=== PATIENT | female | born 1970 | race American Indian/Alaskan Native ===

== ENCOUNTER 2017-09-26 11:49 | Emergency (ER) | payer MEDICAID ==
[2017-09-26] MEDS ORDERED: ZOFRAN IV ONE (12:24)
[2017-09-26] MEDS ORDERED: NACL 0.9% 1000 ML 1,000 ML IV ONE (12:24)
[2017-09-26] MEDS ORDERED: TORADOL IV ONE (12:24)
--- NOTE | 2017-09-26 12:25 | Emergency Department Report ---
Blank Doc - Documentation Documentation: Patient is a 47-year-old Female who presented with 24 hours of left flank pain. Patient had several episodes of nausea and vomiting as well.. Patient does have pain with palpation. Patient denies any fever or dysuria at this time. CT abdomen pelvis done to rule out obstructive uropathy or swelling to the colon. Patient also had labs and urinalysis ordered as well and patient will be reassessed.
[2017-09-26 13:38] LABS: Basophils % (Auto) 0.3 % (0.0-1.8); Eosinophils # (Auto) 0.2 K/mm3 (0.0-0.4); Eosinophils % (Auto) 3.9 % (0.0-4.3); Hematocrit 36.2 % (30.3-42.9); Hemoglobin 12.3 gm/dl (10.1-14.3); Lymphocytes # (Auto) 2.2 K/mm3 (1.2-5.4); Lymphocytes % (Auto) 35.3 % (13.4-35.0); Mean Corpuscular HGB Conc 34 % (30-34); Mean Corpuscular Hemoglobin 29 pg (28-32); Mean Corpuscular Volume 84 fl (79-97); Monocytes # (Auto) 0.5 K/mm3 (0.0-0.8); Monocytes % (Auto) 7.9 % (0.0-7.3); Platelet Count 255 K/mm3 (140-440); Red Cell Distribution Width 15.8 % (13.2-15.2)
[2017-09-26 13:54] LABS: Alanine Aminotransferase 11 units/L (7-56); Albumin 4.1 g/dL (3.9-5); BUN/Creatinine Ratio 13; Blood Urea Nitrogen 8 mg/dL (7-17); Calcium 9.1 mg/dL (8.4-10.2); Hemolysis Index 7
[2017-09-26 18:02] VITALS: BP 127/65
--- NOTE | 2017-09-26 18:04 | Cat Scan Report ---
FINAL REPORT PROCEDURE: CT ABDOMEN PELVIS WO CON TECHNIQUE: Computerized axial tomography of the abdomen and pelvis was performed without intravenous contrast. This study is performed without intravascular contrast material and its sensitivity for abdominal and pelvic pathology, including neoplasms, inflammation, abscess, free fluid, thrombosis, arterial dissection and infarction, is reduced compared with a contrast enhanced study. HISTORY: Left flank pain. COMPARISON: No prior studies are available for comparison. FINDINGS: Visualized lower thorax: No significant abnormality. Liver: Normal size and attenuation. Spleen: Normal size and attenuation. Gallbladder and biliary system: Normal. Pancreas: Normal. Adrenals: Normal. Kidneys: Normal. GI tract: Normal. Normal caliber appendix. Lymph nodes and mesentery: Subcentimeter pre cardiac, retroperitoneal, and mesenteric lymph nodes Vasculature: Mild atherosclerosis. Bladder: Normal. Reproductive organs: Mild enlargement of the uterus. Peritoneum: No free fluid. Musculoskeletal structures: L4-5 slightly left paracentral disc bulge. L5-S1 left paracentral disc herniation, may contact the left S1 nerve root. L5-S1 disc space narrowing and endplate change. Other: Fat filled right inguinal hernia. IMPRESSION: No CT evidence of renal/ureteral stone or obstruction. L4-5 disc bulge. L5-S1 left paracentral disc herniation, may contact the left S1 nerve root. Consider clinical correlation and further evaluation and followup including MRI of the lumbar spine if there is continued clinical concern (and if patient has no contraindication to MRI). Mild enlargement of the uterus Fat filled right inguinal hernia.
[2017-09-26 18:59] LABS: Bacteria,Urine 1+ /HPF (Negative); Bilirubin,Urine NEG (Negative); Blood,Urine NEG (Negative); Color,Urine Yellow (Yellow); Mucus,Urine 1+ /HPF; Protein,Urine <15 mg/dL mg/dL (Negative); Urobilinogen,Urine < 2.0 mg/dL (<2.0)
[2017-09-26 19:04] LABS: HCG Qualitative,Urine Negative (Negative)
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
[2017-09-26] MEDS ORDERED: ZOFRAN ODT PO ONE (19:53)
[2017-09-26] MEDS ORDERED: PERCOCET 5/325 PO ONE (19:53)
== END 2017-09-26 20:06 | disposition home or self-care (01) ==
LOC: ED 11:49
DX: N39.0 Urinary tract infection, site not specified (principal); J45.909 Unspecified asthma, uncomplicated; F17.200 Nicotine dependence, unspecified, uncomplicated; Z88.8 Allergy status to other drugs, medicaments and biological substances
CPT/HCPCS: 36415; 74176; 80053; 81001; 81025; 85025; 96361; 96374; 96375; 99284; J1885; J2405; J7030; Q0162

== ENCOUNTER 2018-09-11 12:57 | Emergency (ER) | payer OTHER ==
[2018-09-11] MEDS ORDERED: DELTASONE PO ONE (13:13)
[2018-09-11] MEDS ORDERED: DUONEB *Not for PRN Use IH ONE ×2 (13:13→14:30)
--- NOTE | 2018-09-11 13:14 | Event Note ---
ED Screening Note Date of service: 09/11/18 Time: 13:11 ED Screening Note: 48 y/o female comes in for asthma flare up. Has been coughing and wheezing. For 1 week. This initial assessment/diagnostic orders/clinical plan/treatment(s) is/are subject to change based on patients health status, clinical progression and re- assessment by fellow clinical providers in the ED. Further treatment and workup at subsequent clinical providers discretion. Patient/guardian urged not to elope from the ED as their condition may be serious if not clinically assessed and managed. Initial orders include:
--- NOTE | 2018-09-11 13:52 | XRay Report ---
CHEST 2 VIEWS INDICATION / CLINICAL INFORMATION: sob. COMPARISON: None available. FINDINGS: SUPPORT DEVICES: None. HEART / MEDIASTINUM: No significant abnormality. LUNGS / PLEURA: No significant pulmonary or pleural abnormality. No pneumothorax. ADDITIONAL FINDINGS: No significant additional findings. IMPRESSION: 1. No acute pulmonary disease. Signer Name: Noni Ring MD Signed: 09/11/2018 1:47 PM Workstation Name: [id number]
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
[2018-09-11 15:56] VITALS: BP 117/77
== END 2018-09-11 14:58 | disposition home or self-care (01) ==
LOC: ED 12:57
DX: J45.21 Mild intermittent asthma with (acute) exacerbation (principal); F17.210 Nicotine dependence, cigarettes, uncomplicated; I10 Essential (primary) hypertension; Z79.899 Other long term (current) drug therapy; Z88.8 Allergy status to other drugs, medicaments and biological substances
CPT/HCPCS: 71046; 94644; 99283; J7512; 94640

== ENCOUNTER 2018-10-30 21:11 | Emergency (ER) | payer SELFPAY ==
--- NOTE | 2018-10-30 22:20 | Event Note ---
ED Screening Note Date of service: 10/30/18 Time: 22:17 ED Screening Note: 48 yo f presents with swelling and pain to right side of face x this am This initial assessment/diagnostic orders/clinical plan/treatment(s) is/are subject to change based on patients health status, clinical progression and re- assessment by fellow clinical providers in the ED. Further treatment and workup at subsequent clinical providers discretion. Patient/guardian urged not to elope from the ED as their condition may be serious if not clinically assessed and managed. Initial orders include: ct facial
--- NOTE | 2018-10-30 23:32 | Cat Scan Report ---
CT face INDICATION: Right facial swelling Contrast: None COMPARISON: None All CT scans at this location are performed using CT dose reduction for ALARA by means of automated e xposure control. No acute bony abnormalities are seen. Mild nasal septal deviation to the right is seen. The paranasal sinuses show moderate thickening in the left sphenoid, mild thickening in the right max illary, and minimal thickening in the ethmoid air cells bilaterally. Frontal sinuses are very poorly developed. No sinus air-fluid levels are seen. No significant mastoid abnormalities are noted. Orbits show no significant abnormalities. Soft tissue edema with subcutaneous stranding is moderately prominent in the right face from the lowe r preorbital tissues along the anterior maxillary area and lateral nose extending inferiorly to the a nterolateral right mandibular region. I do not see a fluid collection to suggest an abscess. No under lying bony erosion is seen. No defined mass is noted. I do not definitely see a hematoma. No soft tis elder gas is seen. IMPRESSION: Soft tissue edema as described in the right face without obvious abscess or hematoma and without significant bony or sinus acute abnormality. Source is unclear though could include celluliti s or sequelae of trauma though I do not have the latter history. Signer Name: Adal Hendrickson MD Signed: 10/30/2018 11:27 PM Workstation Name: [id number]
[2018-10-31] MEDS ORDERED: BENADRYL IV ONE (00:25)
[2018-10-31] MEDS ORDERED: REGLAN IV ONE (00:25)
[2018-10-31] MEDS ORDERED: TORADOL IV ONE (00:25)
[2018-10-31] MEDS ORDERED: REGLAN ONE (00:30)
[2018-10-31] MEDS ORDERED: BENADRYL ONE (00:30)
[2018-10-31] MEDS ORDERED: TORADOL ONE (00:30)
[2018-10-31] MEDS ORDERED: NORCO 5/325 ONE (00:50)
[2018-10-31] MEDS ORDERED: NORCO 5/325 PO ONE (00:50)
[2018-10-31] MEDS ORDERED: CLEOCIN 900 MG/50 mL 900 MG/50 ML BAG IV ONE (02:02)
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
[2018-10-31] MEDS ORDERED: ZOFRAN IV ONE (03:28)
[2018-10-31] MEDS ORDERED: MORPHINE IV ONE (03:28)
[2018-10-31 03:51] VITALS: BP 130/81
== END 2018-10-31 03:50 | disposition home or self-care (01) ==
LOC: ED 21:11
DX: L03.211 Cellulitis of face (principal); I10 Essential (primary) hypertension; J45.909 Unspecified asthma, uncomplicated; F17.200 Nicotine dependence, unspecified, uncomplicated; Z98.890 Other specified postprocedural states; Z79.899 Other long term (current) drug therapy; Z88.8 Allergy status to other drugs, medicaments and biological substances
CPT/HCPCS: 70486; 96365; 96375; 99283; J2270; J2405; J1200; J1885; J2765

== ENCOUNTER 2018-12-19 16:03 | Emergency (ER) | payer SELFPAY ==
--- NOTE | 2018-12-19 16:11 | Event Note ---
ED Screening Note ED Screening Note: abdominal pain lower back pain two days +nausea no vomiting, pressure when urination LNMP: 12/02/18 PMHx asthma, hernia, chronic back pain allergy: methylergonovine This initial assessment/diagnostic orders/clinical plan/treatment(s) is/are subject to change based on patients health status, clinical progression and re- assessment by fellow clinical providers in the ED. Further treatment and workup at subsequent clinical providers discretion. Patient/guardian urged not to elope from the ED as their condition may be serious if not clinically assessed and managed. Initial orders include: UA, CBC, CMP
[2018-12-19 16:15] VITALS: BP 174/84
[2018-12-19] MEDS ORDERED: MORPHINE 4 MG/1 ML INJ IV ONE (16:26)
[2018-12-19] MEDS ORDERED: ONDANSETRON 4 MG/2 ML INJ IV ONE (16:26)
[2018-12-19] MEDS ORDERED: SODIUM CHLORIDE 0.9% 1000 ML 1,000 ML IV ONE (16:26)
[2018-12-19 16:43] LABS: Bacteria,Urine 2+ /HPF (Negative); Bilirubin,Urine NEG (Negative); Blood,Urine NEG (Negative); Color,Urine Yellow (Yellow); Mucus,Urine FEW /HPF; Protein,Urine <15 mg/dL mg/dL (Negative); Urobilinogen,Urine < 2.0 mg/dL (<2.0); WBC,Urine < 1.0 /HPF (0.0-6.0)
[2018-12-19 16:55] LABS: Basophils # (Auto) 0.1 K/mm3 (0.0-0.1); Basophils % (Auto) 0.9 % (0.0-1.8); Eosinophils # (Auto) 0.4 K/mm3 (0.0-0.4); Eosinophils % (Auto) 5.4 % (0.0-4.3); Hematocrit 39.4 % (30.3-42.9); Lymphocytes # (Auto) 2.1 K/mm3 (1.2-5.4); Lymphocytes % (Auto) 32.3 % (13.4-35.0); Mean Corpuscular HGB Conc 33 % (30-34); Mean Corpuscular Volume 88 fl (79-97); Monocytes # (Auto) 0.4 K/mm3 (0.0-0.8); Monocytes % (Auto) 6.4 % (0.0-7.3); Platelet Count 267 K/mm3 (140-440); Red Cell Distribution Width 16.4 % (13.2-15.2)
[2018-12-19 17:12] LABS: Albumin 4.3 g/dL (3.9-5); BUN/Creatinine Ratio 17; Blood Urea Nitrogen 12 mg/dL (7-17); Calcium 9.2 mg/dL (8.4-10.2); Hemolysis Index 96
[2018-12-19 17:19] LABS: Alanine Aminotransferase 12 units/L (7-56)
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
--- NOTE | 2018-12-19 18:15 | Cat Scan Report ---
CT of the abdomen and pelvis with intravenous contrast INDICATION / CLINICAL INFORMATION: Right-sided abdominal pain for 2 days. TECHNIQUE: The patient received 100 cc Omnipaque [address] scans at this location are performed using CT dose reduction for ALARA by means of automated exposure control. COMPARISON: 07/09/2018. FINDINGS: ABDOMEN: The liver, spleen, gallbladder, bile ducts, pancreas, adrenal glands, kidneys and bowel demo nstrate no significant abnormality. No adenopathy is seen. The lung bases are clear. PELVIS: There is a 4 cm simple appearing cyst in the right adnexa without free fluid. The uterus and left adnexa are normal. The distal ureters and urinary bladder are normal. A normal appendix is present and there is no evide nce of diverticulitis. There is no evidence of a hernia. There is moderate degenerative disc disease at L5-S1 which is similar to the prior study. IMPRESSION: 4 cm simple appearing cyst in the right adnexa is probably physiologic. Signer Name: Calixto Hennessy MD Signed: 12/19/2018 6:10 PM Workstation Name: [id number]
== END 2018-12-19 18:41 | disposition home or self-care (01) ==
LOC: ED 16:03
DX: N94.9 Unspecified condition associated with female genital organs and menstrual cycle (principal); I10 Essential (primary) hypertension; J45.909 Unspecified asthma, uncomplicated; F17.200 Nicotine dependence, unspecified, uncomplicated; F12.10 Cannabis abuse, uncomplicated; Z88.8 Allergy status to other drugs, medicaments and biological substances
CPT/HCPCS: 36415; 74177; 80053; 81001; 83690; 84703; 85025; 96361; 96374; 96375; 99284; J2270; J2405; J7030; Q9967

== ENCOUNTER 2019-01-30 14:05 | Emergency (ER) | payer SELFPAY ==
--- NOTE | 2019-01-30 14:25 | Emergency Department Report ---
Blank Doc - Documentation Documentation: 49-year-old female that presents with left sided chest pain and SOB. HX of as thma. Stated symptoms are different from asthma exacerbations. This initial assessment/diagnostic orders/clinical plan/treatment(s) is/are subject to change based on patient's health status, clinical progression and re- assessment by fellow clinical providers in the ED. Further treatment and workup at subsequent clinical providers discretion. Patient/guardians urged not to elope from the ED as their condition may be serious if not clinically assessed and managed. Initial orders include: 1- Patient sent to [facility] for further evaluation and treatment 2- labs 3- EKG 4- CXR
[2019-01-30 14:47] LABS: Basophils # (Auto) 0.1 K/mm3 (0.0-0.1); Basophils % (Auto) 0.8 % (0.0-1.8); Eosinophils # (Auto) 0.2 K/mm3 (0.0-0.4); Eosinophils % (Auto) 3.9 % (0.0-4.3); Hematocrit 39.1 % (30.3-42.9); Hemoglobin 13.2 gm/dl (10.1-14.3); Lymphocytes # (Auto) 2.4 K/mm3 (1.2-5.4); Lymphocytes % (Auto) 39.3 % (13.4-35.0); Mean Corpuscular HGB Conc 34 % (30-34); Mean Corpuscular Volume 86 fl (79-97); Monocytes # (Auto) 0.5 K/mm3 (0.0-0.8); Monocytes % (Auto) 9.1 % (0.0-7.3); Platelet Count 268 K/mm3 (140-440); Red Blood Count 4.58 M/mm3 (3.65-5.03); Red Cell Distribution Width 15.8 % (13.2-15.2)
[2019-01-30 15:12] LABS: Alanine Aminotransferase 13 units/L (7-56); Albumin 4.4 g/dL (3.9-5); BUN/Creatinine Ratio 15; Blood Urea Nitrogen 9 mg/dL (7-17); Calcium 9.3 mg/dL (8.4-10.2); Hemolysis Index 3
--- NOTE | 2019-01-30 15:14 | XRay Report ---
CHEST 2 VIEWS INDICATION: Chest Pain. COMPARISON: 09/11/2018 FINDINGS: Support devices: None. Heart: Within normal limits. Lungs/pleura: No acute air space or interstitial disease. No pneumothorax. Additional findings: None. IMPRESSION: 1. No acute findings. Signer Name: Titus Allen MD Signed: 01/30/2019 3:10 PM Workstation Name: [id number]
[2019-01-30] MEDS ORDERED: predniSONE 20 MG TAB PO ONE (16:12)
[2019-01-30] MEDS ORDERED: ACETAMINOPEN W/CODEINE 120-12MG ORAL LIQD 5 ML PO ONE (16:12)
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
[2019-01-30 17:23] VITALS: BP 181/87
== END 2019-01-30 17:22 | disposition home or self-care (01) ==
LOC: ED 14:05
DX: K21.9 Gastro-esophageal reflux disease without esophagitis (principal); I10 Essential (primary) hypertension; J45.909 Unspecified asthma, uncomplicated; F17.200 Nicotine dependence, unspecified, uncomplicated; Z79.899 Other long term (current) drug therapy; Z88.8 Allergy status to other drugs, medicaments and biological substances
CPT/HCPCS: 36415; 71046; 80053; 84484; 85025; 93005; 93010; 99284; J7512

== ENCOUNTER 2019-02-18 23:24 | Emergency (ER) | payer OTHER ==
[2019-02-19 00:49] LABS: Basophils % (Auto) 0.5 % (0.0-1.8); Eosinophils # (Auto) 0.3 K/mm3 (0.0-0.4); Eosinophils % (Auto) 4.9 % (0.0-4.3); Hematocrit 36.2 % (30.3-42.9); Hemoglobin 12.2 gm/dl (10.1-14.3); Lymphocytes # (Auto) 1.8 K/mm3 (1.2-5.4); Lymphocytes % (Auto) 26.9 % (13.4-35.0); Mean Corpuscular HGB Conc 34 % (30-34); Mean Corpuscular Volume 86 fl (79-97); Monocytes # (Auto) 0.4 K/mm3 (0.0-0.8); Monocytes % (Auto) 5.9 % (0.0-7.3); Platelet Count 230 K/mm3 (140-440); Red Blood Count 4.21 M/mm3 (3.65-5.03); Red Cell Distribution Width 15.4 % (13.2-15.2)
--- NOTE | 2019-02-19 00:55 | XRay Report ---
CHEST 1 VIEW INDICATION: Chest Pain COMPARISON: 01/30/2019 FINDINGS: Support devices: None Heart: Normal and unchanged Lungs/Pleura: No acute pulmonary or pleural findings. IMPRESSION: 1. No acute disease and no interval change. Signer Name: Albert Brown MD Signed: 02/19/2019 12:51 AM Workstation Name: [id number]
[2019-02-19 01:11] LABS: BUN/Creatinine Ratio 9; Blood Urea Nitrogen 7 mg/dL (7-17); Hemolysis Index 18
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
--- NOTE | 2019-02-19 16:19 | Cat Scan Report ---
CTA CHEST WITH IV CONTRAST INDICATION: Chest pain CONTRAST: 100 cc Omnipaque 350 IV COMPARISON: Portable chest x-ray today Three-plane MIP reconstructions were produced. All CT scans at this location are performed using CT d ose reduction for ALARA by means of automated exposure control. NOTE: Resolution is decreased and artifact is introduced by the patient's size. FINDINGS: No significant axillary or chest wall abnormalities are seen. Visualized portions of the up per abdomen show mild fatty infiltration of the liver. No mediastinal or hilar masses are seen. A few small nodes are noted in the mediastinum but are not pathologically enlarged. No pleural effusions a re seen. No pneumothorax or pneumomediastinum are noted. No obvious endobronchial lesions are seen. M ild bilateral areas of scarring and/or atelectasis are seen. No areas of consolidation are noted. No pulmonary nodules or masses are seen. Aorta shows no aneurysmal dilatation or evidence of dissection. Acceptable opacification of the pulmonary arterial system was achieved. I do not see convincing evide nce of pulmonary thromboembolism. IMPRESSION: No acute abnormalities are seen Signer Name: Adal Hendrickson MD Signed: 02/19/2019 4:15 PM Workstation Name: [id number]
[2019-02-19 16:36] VITALS: BP 116/71
== END 2019-02-19 16:53 | disposition home or self-care (01) ==
LOC: ED 23:24
DX: R07.89 Other chest pain (principal); I10 Essential (primary) hypertension; J45.909 Unspecified asthma, uncomplicated; F17.200 Nicotine dependence, unspecified, uncomplicated; F10.10 Alcohol abuse, uncomplicated; Z79.899 Other long term (current) drug therapy; Z88.8 Allergy status to other drugs, medicaments and biological substances
CPT/HCPCS: 36415; 71045; 71275; 80048; 84484; 85025; 85379; 93005; 93010; 99285; Q9967

== ENCOUNTER 2019-03-11 19:30 | Inpatient (IN) | payer OTHER ==
[2019-03-11] MEDS ORDERED: ASPIRIN 325 MG TAB PO ONE (20:02)
[2019-03-11] MEDS ORDERED: IPRATROPIUM/ALBUTEROL SULFATE 3 ML AMPUL.NEB IH ONE (20:52)
--- NOTE | 2019-03-11 21:01 | XRay Report ---
CHEST 1 VIEW INDICATION / CLINICAL INFORMATION: Chest Pain. COMPARISON: 02/19/2019 FINDINGS: SUPPORT DEVICES: None. HEART / MEDIASTINUM: No significant abnormality. LUNGS / PLEURA: No significant pulmonary or pleural abnormality. No pneumothorax. There is minimal ba silar atelectasis. ADDITIONAL FINDINGS: No significant additional findings. IMPRESSION: 1. No significant change Signer Name: Michael Post MD Signed: 03/11/2019 8:56 PM Workstation Name: [id number]
[2019-03-11 21:15] LABS: Basophils # (Auto) 0.1 K/mm3 (0.0-0.1); Basophils % (Auto) 0.7 % (0.0-1.8); Eosinophils # (Auto) 0.1 K/mm3 (0.0-0.4); Hematocrit 35.9 % (30.3-42.9); Hemoglobin 12.5 gm/dl (10.1-14.3); Lymphocytes # (Auto) 1.7 K/mm3 (1.2-5.4); Lymphocytes % (Auto) 15.9 % (13.4-35.0); Mean Corpuscular HGB Conc 35 % (30-34); Mean Corpuscular Volume 84 fl (79-97); Monocytes # (Auto) 0.7 K/mm3 (0.0-0.8); Monocytes % (Auto) 6.5 % (0.0-7.3); Platelet Count 272 K/mm3 (140-440); Red Blood Count 4.27 M/mm3 (3.65-5.03); Red Cell Distribution Width 15.6 % (13.2-15.2)
[2019-03-11 21:37] LABS: BUN/Creatinine Ratio 10; Blood Urea Nitrogen 7 mg/dL (7-17); Calcium 9.6 mg/dL (8.4-10.2); Hemolysis Index 4
[2019-03-11 22:14] LABS: Chol/HDL Ratio 4.17 %; HDL Cholesterol 46 mg/dL (40-59); LDL Cholesterol,Direct 130 mg/dL (50-130)
[2019-03-11] MEDS ORDERED: fentaNYL 100 MCG/2 ML INJ IV ONE ×2 (22:19→23:43)
[2019-03-11] MEDS ORDERED: ONDANSETRON 4 MG/2 ML INJ IV ONE (22:19)
[2019-03-11] MEDS ORDERED: NITROGLYCERIN 2% OINT 1 GM TP ONE (22:22)
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
[2019-03-12] MEDS ORDERED: SIMETHICONE 80 MG CHEW TAB PO ONE (00:25)
--- NOTE | 2019-03-12 01:02 | Cat Scan Report ---
CTA CHEST WITH IV CONTRAST INDICATION: chest pain, back pain, pleurisy. TECHNIQUE: Axial CT images were obtained through the chest after injection of IV contrast. 3 plane MIP reconstru ctions were produced. All CT scans at this location are performed using CT dose reduction for ALARA b y means of automated exposure control. COMPARISON: CT 02/19/2019 FINDINGS: Pulmonary Arteries: No pulmonary emboli. Thoracic Aorta: No acute abnormality. Heart: Stable. Lungs: No acute air space or interstitial disease. There are mild atelectatic changes in the dependen t bases. Pleura: No pleural effusion. No pneumothorax. Lymph Nodes: No significant adenopathy. Additional Findings: None. Upper Abdomen: No acute findings. Skeletal Structures: No significant osseous abnormality. IMPRESSION: 1. No CT evidence for pulmonary embolism. 2. No acute findings. Signer Name: Sukhjinder Strong MD Signed: 03/12/2019 12:58 AM Workstation Name: [id number]
[2019-03-12] MEDS ORDERED: HEPARIN 10,000 UNITS/10 ML VIAL IV ONE (01:05)
[2019-03-12] MEDS ORDERED: MORPHINE 4 MG/1 ML INJ IV ONE (02:05)
[2019-03-12 02:07] LABS: Hematocrit 38.5 % (30.3-42.9); Hemoglobin 12.9 gm/dl (10.1-14.3)
--- NOTE | 2019-03-12 02:48 | History and Physical Report ---
History of Present Illness History of present illness: 49-year-old woman with a history of asthma, chronic back pain comes emergency room complaints of chest pain that started yesterday. Pain is in the epigastric area which she describes as sharp pain, constant, intensity 5/10, radiating to the right arm, cannot identify exacerbating factors. Admits to nausea vomiting no shortness of breath, palpitation. Patient is being admitted for STEMI eview Of Systems: Constitutional: no weight loss, fever, chills Ears, eyes, nose, mouth and throat: no nasal congestion, no nasal discharge, no sinus pressure, blurry vision, diplopia Neck: No neck pain or rigidity. Cardiovascular: No palpitations Respiratory: No s cough Gastrointestinal: No hematochezia, abdominal pain Genitourinary : no dysuria, frequency , hematuria Musculoskeletal: no muscle ache , joint pain Integumentary: no rash, no pruritis Neurological: no parathesias, focal weakness Endocrine: no cold or heat intolerance, no polyuria or polydipsia Hematologic/Lymphatic: no easy bruising, no easy bleeding, no gland swelling Allergic/Immunologic: no urticaria, no angioedema. PAST MEDICAL HISTORY:asthma, chronic back pain PAST SURGICAL HISTORY: Tubal Ligation FAMILY HISTORY:hypertension, diabetes SOCIAL HISTORY: Quit tobacco in January, no drugs, social alcohol Medications and Allergies Allergies Allergy/AdvReac Type Severity Reaction Status Date / Time methylergonovine Allergy Shortness Verified 09/26/17 17:02 [From Methergine] of Breath ketorolac [From Toradol] AdvReac Headache Verified 03/11/19 20:03 Home Medications Medication Instructions Recorded Confirmed Last Taken Type Albuterol Sulfate [Proventil Hfa] 6.7 gm IH Q4H PRN #1 hfa.aer.ad 09/11/18 03/11/19 Unknown Rx Ondansetron [Zofran Odt] 4 mg PO Q8HR PRN #20 tab.rapdis 12/19/18 03/11/19 Unknown Rx Baclofen [Lioresal] 10 mg PO ONCE 03/11/19 03/11/19 Unknown History Gabapentin [Neurontin] 1 tab PO TID 03/11/19 03/11/19 Unknown History Pantoprazole [Protonix TAB] 20 mg QDAY 03/11/19 03/11/19 Unknown History Active Meds: Active Medications Heparin Sodium/Sodium Chloride (Heparin/ 0.45% Nacl-25,000 Unit/500 Ml) 25,000 unit in 500 mls @ 20 mls/hr IV TITRATE CHIDI; Protocol Exam - Physical Exam Narrative exam: General Apperance: The patient sitting in bed no acute distress HEENT: Normocephalic, atraumatic. Pupils equally round and reactive to light, extraocular movement intact, and no sclericterus or JVD or thyromegaly or nodule. Neck supple, no carotid bruit, mucous membranes moist, no exudate or erythema Heart: S1-S2, regular is rhythm Lungs: Clear to auscultation bilaterally, breathing comfortable Abdomen: Positive bowel sounds, soft, nontender, nondistended, no organomegaly Extremities: No edema cyanosis clubbing Skin: no rash, nodule, warm and dry Neuro:CN 2 -12 intact, motor/sensory intact, speech is fluent - Constitutional Vitals: Temp Pulse Resp BP Pulse Ox 99.6 F 94 H 12 135/90 100 03/11/19 22:25 03/12/19 02:30 03/12/19 02:30 03/12/19 02:30 03/12/19 02:30 Results - Labs CBC & Chem 7: 03/12/19 01:44 03/11/19 21:06 Labs: Abnormal lab results 03/11/19 03/11/19 Range/Units 21:06 21:06 MCHC 35 H (30-34) % RDW 15.6 H (13.2-15.2) % Seg Neutrophils % 75.9 H (40.0-70.0) % Seg Neutrophils # 8.0 H (1.8-7.7) K/mm3 Sodium 135 L (137-145) mmol/L Carbon Dioxide 20 L (22-30) mmol/L Glucose 113 H (65-100) mg/dL Troponin T 0.946 H* (0.00-0.029) ng/mL - Imaging and Cardiology EKG: image reviewed Chest x-ray: report reviewed CT scan - chest: report reviewed
[2019-03-12 02:50] LABS: INR 1.06 (0.87-1.13)
[2019-03-12 02:51] LABS: Partial Thromboplastin Time 34.6 Sec. (24.2-36.6)
[2019-03-12] MEDS: HEPARIN/ 0.45% NACL DRIP 25,000 UNIT/500 ML BAG IV SCH (03:01)
[2019-03-12] MEDS: MORPHINE 2 MG/1 ML INJ IV PRN ×4 (05:57→21:43)
[2019-03-12 06:55] LABS: Creatine Kinase MB 30.9 ng/mL (0.0-4.0)
--- NOTE | 2019-03-12 07:49 | Consultation ---
History of Present Illness Consult date: 03/12/19 Consult reason: abnormal cardiac enzymes History of present illness: Impression NSTEMI No prior history of CAD HTN Plan IV heparin, b-melva, nitrates Cardiac cath planned for Thursday Medications and Allergies Allergies Allergy/AdvReac Type Severity Reaction Status Date / Time methylergonovine Allergy Shortness Verified 09/26/17 17:02 [From Methergine] of Breath ketorolac [From Toradol] AdvReac Headache Verified 03/11/19 20:03 Home Medications Medication Instructions Recorded Confirmed Last Taken Type Albuterol Sulfate [Proventil Hfa] 6.7 gm IH Q4H PRN #1 hfa.aer.ad 09/11/18 03/11/19 Unknown Rx Ondansetron [Zofran Odt] 4 mg PO Q8HR PRN #20 tab.rapdis 12/19/18 03/11/19 Unknown Rx Baclofen [Lioresal] 10 mg PO ONCE 03/11/19 03/11/19 Unknown History Gabapentin [Neurontin] 1 tab PO TID 03/11/19 03/11/19 Unknown History Pantoprazole [Protonix TAB] 20 mg QDAY 03/11/19 03/11/19 Unknown History Active Meds: Active Medications Aspirin (Baby Aspirin) 81 mg PO QDAY [facility] Heparin Sodium/Sodium Chloride (Heparin/ 0.45% Nacl-25,000 Unit/500 Ml) 25,000 unit in 500 mls @ 20 mls/hr IV TITRATE CHIDI; Protocol Last Admin: 03/12/19 03:01 Dose: 1,000 units/hr, 20 mls/hr Documented by: Lisinopril (Zestril) 2.5 mg PO QDAY CHIDI Metoprolol Tartrate (Metoprolol) 12.5 mg PO BID [facility] Morphine Sulfate (Morphine) 2 mg IV Q4H PRN PRN Reason: Pain, Moderate (4-6) Last Admin: 03/12/19 05:57 Dose: 2 mg Documented by: Review of Systems All systems: negative (chest pain and cough in middle of night) Physical Examination Vital Signs Temp Pulse Resp BP Pulse Ox 98.5 F 105 H 18 164/100 99 03/11/19 19:57 03/11/19 19:57 03/11/19 19:57 03/11/19 19:57 03/11/19 19:57 General appearance: no acute distress HEENT: Positive: PERRL Neck: Positive: neck supple Cardiac: Positive: Reg Rate and Rhythm, S1/S2 Lungs: Positive: Normal Exam Neuro: Positive: Grossly Intact Abdomen: Positive: Unremarkable, Soft Results 03/12/19 01:44 03/11/19 21:06 Cardiac Enzymes 03/12/19 Range/Units 06:03 CK-MB (CK-2) 30.9 H (0.0-4.0) ng/mL Coagulation 03/12/19 Range/Units 01:44 PT 13.9 (12.2-14.9) Sec. INR 1.06 (0.87-1.13) APTT 34.6 (24.2-36.6) Sec. Lipids 03/11/19 Range/Units 21:06 Triglycerides 130 (2-149) mg/dL Cholesterol 192 (50-199) mg/dL HDL Cholesterol 46 (40-59) mg/dL Cholesterol/HDL Ratio 4.17 % CBC 03/11/19 03/12/19 Range/Units 21:06 01:44 WBC 10.5 (4.5-11.0) K/mm3 RBC 4.27 (3.65-5.03) M/mm3 Hgb 12.5 12.9 (10.1-14.3) gm/dl Hct 35.9 38.5 (30.3-42.9) % Plt Count 272 303 (140-440) K/mm3 Lymph # 1.7 (1.2-5.4) K/mm3 [place] # 0.7 (0.0-0.8) K/mm3 Eos # 0.1 (0.0-0.4) K/mm3 Baso # 0.1 (0.0-0.1) K/mm3 Comprehensive Metabolic Panel 03/11/19 Range/Units 21:06 Sodium 135 L (137-145) mmol/L Potassium 4.0 (3.6-5.0) mmol/L Chloride 98.6 (98-107) mmol/L Carbon Dioxide 20 L (22-30) mmol/L BUN 7 (7-17) mg/dL Creatinine 0.7 (0.7-1.2) mg/dL Glucose 113 H (65-100) mg/dL Calcium 9.6 (8.4-10.2) mg/dL
[2019-03-12] MEDS ORDERED: NITROGLYCERIN 0.4 MG TAB SUBL SL PRN (08:43)
--- NOTE | 2019-03-12 08:45 | Event Note ---
Date: 03/12/19 Patient presented with chest pain, diagnosed with NSTEMI. I have seen and examined her. Give nitro sl prn Add Nitropaste q 6h.
[2019-03-12] MEDS: NITROGLYCERIN 2% OINT 1 GM TP SCH ×3 (09:43→20:18)
[2019-03-12] MEDS: ACETAMINOPHEN 325 MG TAB PO PRN ×2 (09:43→17:14)
[2019-03-12] MEDS: METOPROLOL TARTRATE 25 MG TAB PO SCH ×2 (09:43→21:28)
[2019-03-12] MEDS: ASPIRIN 81 MG TAB CHEW PO SCH (09:43)
[2019-03-12] MEDS: LISINOPRIL 5 MG TAB PO SCH (09:43)
[2019-03-13] MEDS: NITROGLYCERIN 2% OINT 1 GM TP SCH ×4 (02:38→21:00)
[2019-03-13] MEDS: HEPARIN/ 0.45% NACL DRIP 25,000 UNIT/500 ML BAG IV SCH (03:03)
[2019-03-13 06:14] LABS: BUN/Creatinine Ratio 10; Blood Urea Nitrogen 8 mg/dL (7-17); Hemolysis Index 0
--- NOTE | 2019-03-13 07:38 | Progress Note ---
Subjective Date of service: 03/13/19 Interval history: Impression NSTEMI, trop elevation No prior history of CAD HTN Plan IV heparin, b-melva, nitrates Cardiac cath planned for Thursday Objective Vital Signs Temp Pulse Resp BP BP Pulse Ox 03/13/19 04:23 98.0 F 91 H 18 90/51 97 03/13/19 02:51 83 122/78 100 03/12/19 23:25 98.0 F 70 20 91/54 96 03/12/19 22:34 98/61 03/12/19 22:00 77 18 03/12/19 20:18 99.5 F 03/12/19 20:03 100.2 F H 82 18 89/42 98 03/12/19 17:24 100.3 F H 17 104/61 03/12/19 16:00 100.3 F H 87 17 104/61 96 03/12/19 13:01 98.8 F 77 96 H 93/50 03/12/19 10:52 93 H - Physical Examination HEENT: Positive: PERRL Neck: Positive: neck supple Cardiac: Positive: Reg Rate and Rhythm, S1/S2 Lungs: Positive: Normal Exam Neuro: Positive: Grossly Intact Abdomen: Positive: Unremarkable, Soft - Labs and Meds Comprehensive Metabolic Panel 03/13/19 Range/Units 05:25 Sodium 137 (137-145) mmol/L Potassium 4.0 (3.6-5.0) mmol/L Chloride 99.4 (98-107) mmol/L Carbon Dioxide 25 (22-30) mmol/L BUN 8 (7-17) mg/dL Creatinine 0.8 (0.7-1.2) mg/dL Glucose 106 H (65-100) mg/dL Calcium 9.0 (8.4-10.2) mg/dL - Imaging and Cardiology EKG: image reviewed
[2019-03-13] MEDS ORDERED: SODIUM CHLORIDE 0.9% 500 ML 500 ML IV SCH (08:00)
[2019-03-13] MEDS: ASPIRIN 81 MG TAB CHEW PO SCH (09:21)
[2019-03-13] MEDS: LISINOPRIL 5 MG TAB PO SCH (09:22)
[2019-03-13] MEDS: MORPHINE 2 MG/1 ML INJ IV PRN ×3 (09:22→21:30)
[2019-03-13] MEDS: METOPROLOL TARTRATE 25 MG TAB PO SCH ×2 (09:22→21:29)
--- NOTE | 2019-03-13 12:05 | XRay Report ---
CHEST 1 VIEW INDICATION / CLINICAL INFORMATION: Fever. COMPARISON: 03/11/2019 FINDINGS: SUPPORT DEVICES: None. HEART / MEDIASTINUM: No significant abnormality. LUNGS / PLEURA: There is slight basilar atelectasis. No infiltrate, edema or effusion. No pneumothora x. ADDITIONAL FINDINGS: No significant additional findings. IMPRESSION: 1. No significant change Signer Name: Michael Post MD Signed: 03/13/2019 12:01 PM Workstation Name: [id number]
--- NOTE | 2019-03-13 14:26 | Progress Note ---
Assessment and Plan Assessment and plan: NSTEMI patient with intermittent chest pain. Troponins elevated cardiology following On Heparin drip, Nitrates For cardiac cath in am Hypotension Hold Metoprolol, Lisinopril and Nitrates if BP low monitor BP Obesity counseled on diet and exercise Full code status History Interval history: She presented with chest pain diagnosed with NSTEMI Hospitalist Physical - Physical exam Narrative exam: GEN: Not in acute distress, lying in bed, obese HEENT: Normocephalic, atraumatic, Neck: supple, No JVD Lungs: Clear to auscultation bilaterally, no wheeze, heart;S1 and S2 reg, no murmurs Abd:soft, non tender, non distended, normal bowel sounds Ext: No edema, no clubbing, no cyanosis Neuro: AAO X 3, no focal neurological signs, moves all ext - Constitutional Vitals: Temp Pulse Resp BP Pulse Ox 98.2 F 85 20 90/50 98 03/13/19 09:11 03/13/19 10:00 03/13/19 09:22 03/13/19 09:11 03/13/19 10:00 General appearance: Present: no acute distress LEI score - Lei Score Age > 65: (0) No Aspirin use within the Past 7 Days: (0) No 3 or more CAD Risk Factors: (0) No 2 or more Angina events in past 24 hrs: (0) No Known CAD with more than 50% Stenosis: (0) No Elevated Cardiac Markers: (0) No ST Deviation Greater than 0.5mm: (0) No LEI Score: 0 Results - Labs CBC & Chem 7: 03/12/19 01:44 03/13/19 05:25 Labs: Laboratory Last Values WBC 10.5 K/mm3 (4.5-11.0) 03/11/19 21:06 RBC 4.27 M/mm3 (3.65-5.03) 03/11/19 21:06 Hgb 12.9 gm/dl (10.1-14.3) 03/12/19 01:44 Hct 38.5 % (30.3-42.9) 03/12/19 01:44 MCV 84 fl (79-97) 03/11/19 21:06 MCH 29 pg (28-32) 03/11/19 21:06 MCHC 35 % (30-34) H 03/11/19 21:06 RDW 15.6 % (13.2-15.2) H 03/11/19 21:06 Plt Count 303 K/mm3 (140-440) 03/12/19 01:44 Lymph % (Auto) 15.9 % (13.4-35.0) 03/11/19 21:06 [place] % (Auto) 6.5 % (0.0-7.3) 03/11/19 21:06 Eos % (Auto) 1.0 % (0.0-4.3) 03/11/19 21:06 Baso % (Auto) 0.7 % (0.0-1.8) 03/11/19 21:06 Lymph # 1.7 K/mm3 (1.2-5.4) 03/11/19 21:06 [place] # 0.7 K/mm3 (0.0-0.8) 03/11/19 21:06 Eos # 0.1 K/mm3 (0.0-0.4) 03/11/19 21:06 Baso # 0.1 K/mm3 (0.0-0.1) 03/11/19 21:06 Seg Neutrophils % 75.9 % (40.0-70.0) H 03/11/19 21:06 Seg Neutrophils # 8.0 K/mm3 (1.8-7.7) H 03/11/19 21:06 PT 13.9 Sec. (12.2-14.9) 03/12/19 01:44 INR 1.06 (0.87-1.13) 03/12/19 01:44 APTT 34.6 Sec. (24.2-36.6) 03/12/19 01:44 Heparin Anti-Xa Level < 0.10 U.I./ml (0.3-0.7) L 03/13/19 09:51 Sodium 137 mmol/L (137-145) 03/13/19 05:25 Potassium 4.0 mmol/L (3.6-5.0) 03/13/19 05:25 Chloride 99.4 mmol/L (98-107) 03/13/19 05:25 Carbon Dioxide 25 mmol/L (22-30) 03/13/19 05:25 Anion Gap 17 mmol/L 03/13/19 05:25 BUN 8 mg/dL (7-17) 03/13/19 05:25 Creatinine 0.8 mg/dL (0.7-1.2) 03/13/19 05:25 Estimated GFR > 60 ml/min 03/13/19 05:25 BUN/Creatinine Ratio 10 % 03/13/19 05:25 Glucose 106 mg/dL (65-100) H 03/13/19 05:25 POC Glucose 93 (70-105) 03/12/19 07:41 Calcium 9.0 mg/dL (8.4-10.2) 03/13/19 05:25 Total Creatine Kinase 525 units/L (30-135) H 03/12/19 06:03 CK-MB (CK-2) 30.9 ng/mL (0.0-4.0) H 03/12/19 06:03 CK-MB (CK-2) Rel Index 5.8 (0-4) H 03/12/19 06:03 Troponin T 1.120 ng/mL (0.00-0.029) H* 03/12/19 06:03 Triglycerides 130 mg/dL (2-149) 03/11/19 21:06 Cholesterol 192 mg/dL (50-199) 03/11/19 21:06 LDL Cholesterol Direct 130 mg/dL (50-130) 03/11/19 21:06 HDL Cholesterol 46 mg/dL (40-59) 03/11/19 21:06 Cholesterol/HDL Ratio 4.17 % 03/11/19 21:06 Active Medications - Current Medications Current Medications: Generic Name Dose Route Start Last Admin Trade Name Dicksonq PRN Reason Stop Dose Admin Acetaminophen 650 mg 03/12/19 08:44 03/12/19 17:14 Tylenol PO 650 mg Q6H PRN Administration Headache Aspirin 81 mg 03/12/19 10:00 03/13/19 09:21 Baby Aspirin PO 81 mg QDAY CHIDI Administration Heparin Sodium/Sodium Chloride 25,000 unit in 500 mls @ 20 mls/hr 03/12/19 02:00 03/13/19 03:03 Heparin/ 0.45% Nacl-25,000 Unit/500 Ml IV 1,000 units/hr TITRATE CHIDI 20 mls/hr Administration Protocol 1,000 UNITS/HR Sodium Chloride 500 mls @ 50 mls/hr 03/13/19 08:00 Nacl 0.9% 500 Ml IV 03/13/19 17:59 [facility] Lisinopril 2.5 mg 03/12/19 10:00 03/13/19 09:22 Zestril PO Not Given QDAY [facility] Metoprolol Tartrate 12.5 mg 03/12/19 10:00 03/13/19 09:22 Metoprolol PO Not Given BID [facility] Morphine Sulfate 2 mg 03/12/19 05:47 03/13/19 09:22 Morphine IV 2 mg Q4H PRN Administration Pain, Moderate (4-6) Nitroglycerin 0.5 inch 03/12/19 09:00 03/13/19 09:18 Nitro-Bid 2% TP Not Given Q6H [facility] Protocol Nitroglycerin 0.4 mg 03/12/19 08:43 Nitrostat SL .Q5MIN PRN Chest Pain
[2019-03-13] MEDS ORDERED: HEPARIN 10,000 UNITS/10 ML VIAL IV ONE (15:40)
[2019-03-14] MEDS: HEPARIN/ 0.45% NACL DRIP 25,000 UNIT/500 ML BAG IV SCH (02:31)
[2019-03-14] MEDS: MORPHINE 2 MG/1 ML INJ IV PRN ×3 (04:38→21:36)
[2019-03-14 05:39] LABS: Hematocrit 34.1 % (30.3-42.9); Hemoglobin 11.1 gm/dl (10.1-14.3); Mean Corpuscular HGB Conc 33 % (30-34); Mean Corpuscular Volume 85 fl (79-97); Platelet Count 301 K/mm3 (140-440); Red Blood Count 4.01 M/mm3 (3.65-5.03)
[2019-03-14 05:59] LABS: Partial Thromboplastin Time 76.2 Sec. (24.2-36.6)
[2019-03-14 06:01] LABS: INR 1.09 (0.87-1.13)
[2019-03-14] MEDS ORDERED: SODIUM CHLORIDE 0.9% 500 ML 500 ML ONE (07:34)
[2019-03-14] MEDS: SODIUM CHLORIDE 0.9% 500 ML 500 ML IV SCH ×2 (07:45→11:14)
[2019-03-14] MEDS: NITROGLYCERIN 2% OINT 1 GM TP SCH (08:50)
[2019-03-14] MEDS ORDERED: ASPIRIN 81 MG TAB CHEW ONE (10:33)
[2019-03-14] MEDS ORDERED: HEPARIN/NS 5000 UNIT/500ML 1,000 ML IR ONE (10:47)
[2019-03-14] MEDS ORDERED: NITROGLYCERIN SYRINGE 3 ML ONE (10:48)
[2019-03-14] MEDS: MIDAZOLAM 2 MG/2 ML INJ ONE ×3 (11:12→11:41)
[2019-03-14] MEDS: LIDOCAINE (2%) 20 MG/1 ML VIAL 20 ML MDV INFILTRATI ONE ×2 (11:12→11:39)
[2019-03-14] MEDS: fentaNYL 100 MCG/2 ML INJ ONE ×3 (11:12→11:41)
[2019-03-14] MEDS: VERAPAMIL 5 MG/2 ML INJ ONE ×2 (11:13→11:41)
[2019-03-14] MEDS: HEPARIN 10,000 UNITS/10 ML VIAL ONE ×3 (11:13→11:44)
[2019-03-14] MEDS ORDERED: NITROGLYCERIN SYRINGE 6 ML ONE (12:07)
[2019-03-14] MEDS ORDERED: SODIUM CHLORIDE 0.9% 500 ML 0 ML ONE (12:09)
[2019-03-14] MEDS ORDERED: CLOPIDOGREL 300 MG TAB ONE (12:27)
[2019-03-14] MEDS ORDERED: ALUM-MAG HYDROXIDE-SIMETHICONE 200-200-20MG/5ML ORAL LIQD 30 ML ONE (12:28)
--- NOTE | 2019-03-14 12:38 | Cardiac Catherization Report ---
CORONARY ANGIOPLASTY REPORT REASON FOR PROCEDURE: The patient is a 49-year-old woman who presented with chest pain and elevated cardiac isoenzymes consistent with a non-ST elevation myocardial infarction. A cardiac catheterization was recommended as part of an early invasive strategy. PROCEDURES: 1. Left heart catheterization. 2. Selective left and right coronary angiography. 3. Left ventricular angiography. 4. Coronary angioplasty and stenting of the mid left anterior descending artery. 5. Sedation time, start 11:36 and end 12:11. DESCRIPTION OF PROCEDURE: The patient was prepped and draped in a sterile fashion after informed consent. The right radial cath site was prepped and draped after a negative Atul's test. The right radial artery was entered using Seldinger technique followed by placement of a 6-Mohawk hydrophilic sheath. Routine radial cocktail was administered via the sheath. Selective left and right coronary angiography was performed using a #3.5 left Evi and a #4 right Evi. The right Evi was used for left ventricle angiography. The angiograms were reviewed. CORONARY ANGIOGRAPHY: Left main coronary artery was free of significant disease. The left anterior descending artery contained a greater than 95% stenosis of its mid segment. This was a moderately calcified lesion. The circumflex artery contained a 50-70% stenosis of its proximal AV groove segment, before the origin of a large mid obtuse marginal. The mid obtuse marginal contained a hazy, 80-90% stenosis of its proximal segment. Following the mid obtuse marginal, the circumflex then terminated in a medium sized terminal branch. The right coronary artery was dominant. This vessel contained mild luminal irregularities in its mid segment. There was a 40-50% stenosis of the AV groove right coronary in its distal segment, just after the acute margin. There was at least mild left ventricular systolic dysfunction with overall left ventricular ejection fraction about 40%. CORONARY ANGIOPLASTY: After review of the angiograms, we proceeded with ad hoc coronary intervention to the mid LAD stenosis. We selected a #3.0 XB guiding catheter and advanced to the left coronary ostium. A 0.014 inch Dehydration Plant Operator 50 guidewire was then introduced, across the lesional segment. The lesion was then predilated using a 3.0 mm balloon catheter. Following pre-dilatation, serial, 3.0-3.5 mm drug-eluting stents were then deployed, and inflated to optimal pressures. After stent deployment, we post-dilated the lesion using a 4.0 x 8 mm noncompliant balloon. After predilatation, stent deployment and post-dilatation as described, there was an excellent angiographic result at the treated site, 0 residual stenosis and LEI 3 flow was maintained down the LAD. The procedure was well tolerated by the patient and there were no complications. CONCLUSION: 1. Multivessel disease with severe disease of the mid LAD, and severe disease of the proximal and mid obtuse marginal branches of the circumflex artery. 2. At least mild left ventricular systolic dysfunction, ejection fraction 40%. 3. Successful ad hoc angioplasty and stenting of the mid LAD, excellent angiographic result following deployment of 3.0-3.5 mm Xience drug-eluting stents. RECOMMENDATION: The patient will be recommended for elective, staged, second vessel intervention to the circumflex. JOB# [id number] FOX/PARTHA
--- NOTE | 2019-03-14 13:28 | Event Note ---
Date: 03/14/19 Cardiac catheterization was completed via the right radial artery, no complications. We found: 1. Severe mid LAD disease with a greater than 95% calcified stenosis. 2. Severe disease of the mid obtuse marginal branch of the circumflex artery. 3. At least mild left ventricular systolic dysfunction with ejection fraction 40%. Successful ad hoc coronary angioplasty and stenting of the LAD, excellent angiographic result with serial, 3.0-3.5 mm drug-eluting stents. Patient will be recommended for a staged second vessel intervention to the mid obtuse marginal.
[2019-03-14] MEDS ORDERED: SODIUM CHLORIDE 0.9% 1000 ML 1,000 ML IV SCH (13:30)
--- NOTE | 2019-03-14 14:04 | Progress Note ---
Assessment and Plan Assessment and plan: NSTEMI patient with intermittent chest pain. Troponins elevated cardiology following On Heparin drip, Nitrates For cardiac cath today Hypotension Hold Metoprolol, Lisinopril and Nitrates if BP low monitor BP Obesity counseled on diet and exercise Full code status History Interval history: She presented with chest pain diagnosed with NSTEMI For cardiac cath today Hospitalist Physical - Physical exam Narrative exam: GEN: Not in acute distress, lying in bed, obese HEENT: Normocephalic, atraumatic, Neck: supple, No JVD Lungs: Clear to auscultation bilaterally, no wheeze, heart;S1 and S2 reg, no murmurs Abd:soft, non tender, non distended, normal bowel sounds Ext: No edema, no clubbing, no cyanosis Neuro: AAO X 3, no focal neurological signs, moves all ext - Constitutional Vitals: Temp Pulse Resp BP Pulse Ox 98.5 F 77 18 107/66 99 03/14/19 08:20 03/14/19 10:00 03/14/19 08:20 03/14/19 08:50 03/14/19 10:00 General appearance: Present: no acute distress LEI score - Lei Score Age > 65: (0) No Aspirin use within the Past 7 Days: (0) No 3 or more CAD Risk Factors: (0) No 2 or more Angina events in past 24 hrs: (0) No Known CAD with more than 50% Stenosis: (0) No Elevated Cardiac Markers: (0) No ST Deviation Greater than 0.5mm: (0) No LEI Score: 0 Results - Labs CBC & Chem 7: 03/14/19 05:16 03/13/19 05:25 Labs: Laboratory Last Values WBC 6.2 K/mm3 (4.5-11.0) 03/14/19 05:16 RBC 4.01 M/mm3 (3.65-5.03) 03/14/19 05:16 Hgb 11.1 gm/dl (10.1-14.3) 03/14/19 05:16 Hct 34.1 % (30.3-42.9) 03/14/19 05:16 MCV 85 fl (79-97) 03/14/19 05:16 MCH 28 pg (28-32) 03/14/19 05:16 MCHC 33 % (30-34) 03/14/19 05:16 RDW 15.0 % (13.2-15.2) 03/14/19 05:16 Plt Count 301 K/mm3 (140-440) 03/14/19 05:16 Lymph % (Auto) 15.9 % (13.4-35.0) 03/11/19 21:06 [place]duffie % (Auto) 6.5 % (0.0-7.3) 03/11/19 21:06 Eos % (Auto) 1.0 % (0.0-4.3) 03/11/19 21:06 Baso % (Auto) 0.7 % (0.0-1.8) 03/11/19 21:06 Lymph # 1.7 K/mm3 (1.2-5.4) 03/11/19 21:06 [place]ff[place] # 0.7 K/mm3 (0.0-0.8) 03/11/19 21:06 Eos # 0.1 K/mm3 (0.0-0.4) 03/11/19 21:06 Baso # 0.1 K/mm3 (0.0-0.1) 03/11/19 21:06 Seg Neutrophils % 75.9 % (40.0-70.0) H 03/11/19 21:06 Seg Neutrophils # 8.0 K/mm3 (1.8-7.7) H 03/11/19 21:06 PT 14.2 Sec. (12.2-14.9) 03/14/19 05:16 INR 1.09 (0.87-1.13) 03/14/19 05:16 APTT 76.2 Sec. (24.2-36.6) H* 03/14/19 05:16 Heparin Anti-Xa Level 0.25 U.I./ml (0.3-0.7) L 03/14/19 05:16 Sodium 137 mmol/L (137-145) 03/13/19 05:25 Potassium 4.0 mmol/L (3.6-5.0) 03/13/19 05:25 Chloride 99.4 mmol/L (98-107) 03/13/19 05:25 Carbon Dioxide 25 mmol/L (22-30) 03/13/19 05:25 Anion Gap 17 mmol/L 03/13/19 05:25 BUN 8 mg/dL (7-17) 03/13/19 05:25 Creatinine 0.8 mg/dL (0.7-1.2) 03/13/19 05:25 Estimated GFR > 60 ml/min 03/13/19 05:25 BUN/Creatinine Ratio 10 % 03/13/19 05:25 Glucose 106 mg/dL (65-100) H 03/13/19 05:25 POC Glucose 140 (70-105) H 03/14/19 13:56 Calcium 9.0 mg/dL (8.4-10.2) 03/13/19 05:25 Total Creatine Kinase 525 units/L (30-135) H 03/12/19 06:03 CK-MB (CK-2) 30.9 ng/mL (0.0-4.0) H 03/12/19 06:03 CK-MB (CK-2) Rel Index 5.8 (0-4) H 03/12/19 06:03 Troponin T 1.120 ng/mL (0.00-0.029) H* 03/12/19 06:03 Triglycerides 130 mg/dL (2-149) 03/11/19 21:06 Cholesterol 192 mg/dL (50-199) 03/11/19 21:06 LDL Cholesterol Direct 130 mg/dL (50-130) 03/11/19 21:06 HDL Cholesterol 46 mg/dL (40-59) 03/11/19 21:06 Cholesterol/HDL Ratio 4.17 % 03/11/19 21:06 Active Medications - Current Medications Current Medications: Generic Name Dose Route Start Last Admin Trade Name Freq PRN Reason Stop Dose Admin Acetaminophen 650 mg 03/12/19 08:44 03/12/19 17:14 Tylenol PO 650 mg Q6H PRN Administration Headache Aspirin 81 mg 03/12/19 10:00 03/13/19 09:21 Baby Aspirin PO 81 mg QDAY [facility]I Administration Atorvastatin Calcium 40 mg 03/14/19 22:00 Lipitor PO QHS [facility] Clopidogrel Bisulfate 75 mg 03/15/19 10:00 Plavix PO QDAY [facility] Sodium Chloride 500 mls @ 50 mls/hr 03/14/19 08:00 03/14/19 11:14 Nacl 0.9% 500 Ml IV 03/14/19 18:00 50 mls/hr DIRECT [facility] Administration Sodium Chloride 1,000 mls @ 75 mls/hr 03/14/19 13:30 Nacl 0.9% 1000 Ml IV 03/15/19 01:29 DIRECT [facility] Heparin Sodium/Sodium Chloride 25,000 unit in 500 mls @ 20 mls/hr 03/14/19 15:00 Heparin/ 0.45% Nacl-25,000 Unit/500 Ml IV TITRATE [facility] Protocol 1,000 UNITS/HR Isosorbide Mononitrate 30 mg 03/14/19 15:00 Imdur PO QDAY [facility] Lisinopril 5 mg 03/14/19 15:00 Zestril PO QDAY [facility] Metoprolol Tartrate 25 mg 03/14/19 14:00 Metoprolol PO Q8HR [facility] Morphine Sulfate 2 mg 03/12/19 05:47 03/14/19 04:38 Morphine IV 2 mg Q4H PRN Administration Pain, Moderate (4-6) Nitroglycerin 0.4 mg 03/12/19 08:43 Nitrostat SL .Q5MIN PRN Chest Pain
[2019-03-14] MEDS ORDERED: HEPARIN/ 0.45% NACL DRIP 25,000 UNIT/500 ML BAG IV SCH (15:00)
[2019-03-14] MEDS: METOPROLOL TARTRATE 25 MG TAB PO SCH (21:35)
[2019-03-15 04:07] LABS: Basophils % (Auto) 0.3 % (0.0-1.8); Eosinophils # (Auto) 0.2 K/mm3 (0.0-0.4); Eosinophils % (Auto) 3.6 % (0.0-4.3); Hematocrit 31.6 % (30.3-42.9); Hemoglobin 10.5 gm/dl (10.1-14.3); Lymphocytes # (Auto) 1.6 K/mm3 (1.2-5.4); Lymphocytes % (Auto) 24.8 % (13.4-35.0); Mean Corpuscular HGB Conc 33 % (30-34); Mean Corpuscular Volume 84 fl (79-97); Monocytes # (Auto) 0.7 K/mm3 (0.0-0.8); Monocytes % (Auto) 11.3 % (0.0-7.3); Platelet Count 293 K/mm3 (140-440); Red Blood Count 3.78 M/mm3 (3.65-5.03)
[2019-03-15 06:52] LABS: INR 1.06 (0.87-1.13)
[2019-03-15 06:53] LABS: BUN/Creatinine Ratio 15; Blood Urea Nitrogen 9 mg/dL (7-17); Calcium 9.2 mg/dL (8.4-10.2); Creatine Kinase MB 2.4 ng/mL (0.0-4.0); Hemolysis Index 0
--- NOTE | 2019-03-15 09:13 | XRay Report ---
CHEST 1 VIEW INDICATION / CLINICAL INFORMATION: post pci. COMPARISON: 03/13/2019 FINDINGS: SUPPORT DEVICES: None. HEART / MEDIASTINUM: No significant abnormality. LUNGS / PLEURA: The lungs are unchanged in appearance.. No pneumothorax. ADDITIONAL FINDINGS: No significant additional findings. IMPRESSION: 1. No significant change. Signer Name: Silver Sigala MD Signed: 03/15/2019 9:09 AM Workstation Name: [id number]
[2019-03-15] MEDS ORDERED: MIDAZOLAM 2 MG/2 ML INJ ONE (10:45)
[2019-03-15] MEDS: ASPIRIN 81 MG TAB CHEW PO SCH (11:00)
[2019-03-15] MEDS: LISINOPRIL 5 MG TAB PO SCH (11:08)
[2019-03-15] MEDS: CLOPIDOGREL 75 MG TAB PO SCH ×2 (11:09→11:25)
[2019-03-15] MEDS ORDERED: CLOPIDOGREL 75 MG TAB ONE (11:24)
[2019-03-15] MEDS ORDERED: ASPIRIN EC 81 MG TAB PO ONE (11:25)
[2019-03-15] MEDS: HEPARIN/NS 5000 UNIT/500ML 1,000 ML IR ONE ×2 (12:00→12:18)
[2019-03-15] MEDS: SODIUM CHLORIDE 0.9% 500 ML 500 ML ONE ×2 (12:00→12:18)
[2019-03-15] MEDS: MIDAZOLAM 2 MG/2 ML INJ ONE (12:10)
[2019-03-15] MEDS: fentaNYL 100 MCG/2 ML INJ ONE ×2 (12:10→12:21)
[2019-03-15] MEDS: LIDOCAINE (2%) 20 MG/1 ML VIAL 20 ML MDV INFILTRATI ONE ×2 (12:17→12:19)
[2019-03-15] MEDS: HEPARIN 10,000 UNITS/10 ML VIAL ONE ×4 (12:18→12:41)
[2019-03-15] MEDS: VERAPAMIL 5 MG/2 ML INJ ONE ×2 (12:18→12:21)
[2019-03-15] MEDS: NITROGLYCERIN SYRINGE 3 ML ONE ×2 (12:19→12:21)
[2019-03-15] MEDS ORDERED: NITROGLYCERIN SYRINGE 3 ML ONE (12:39)
[2019-03-15] MEDS ORDERED: HYDROmorphone 1 MG/1 ML INJ ONE (12:45)
--- NOTE | 2019-03-15 13:06 | Event Note ---
Date: 03/15/19 Successful second vessel angioplasty and stenting of the proximal AV groove and mid obtuse marginal segments of the circumflex system. Excellent angiographic result, no complications. Anticipate discharge tomorrow on guideline directed medical therapy including dual oral antiplatelet therapy.
--- NOTE | 2019-03-15 13:10 | Cardiac Catherization Report ---
REASON FOR STUDY: The patient is a 49-year-old woman who presented with acute coronary syndrome, non-ST elevation myocardial infarction. A cardiac catheterization revealed severe 2-vessel coronary artery disease. Yesterday, she underwent successful angioplasty and stenting of a critical stenosis of the mid LAD. Today, she returns for second vessel coronary intervention to the circumflex system. PROCEDURES: 1. Coronary angioplasty and stenting of the proximal and the mid obtuse marginal segments of the circumflex system. 2. Sedation time, start 12:10, end 12:47. The patient was prepped and draped in a sterile fashion after informed consent. The right radial cath site was prepped and draped after a negative Atul's test. The right radial artery was entered using the Seldinger technique followed by placement of a 6-Bengali hydrophilic sheath. Routine radial cocktail was administered via the sheath. We selected a #3.0 XB guiding catheter and advanced to the left coronary ostium. Pre-intervention angiograms were taken. A 0.014 inch Glass Production Machine Operator 50 guidewire was then selected, and introduced into the circumflex system across the lesional segments. Two lesions were identified in the circumflex system. There was a proximal AV groove 75% stenosis, located between the origins of the anterolateral and mid obtuse marginal branches. Following that, there was another 95-99% stenosis of the proximal segment of the mid obtuse marginal, extending from its ostium. We treated the mid obtuse marginal lesion using 2.5 mm pre-dilatation balloon. After predilating, a 2.5 x 12 mm drug-eluting stent was then deployed within the proximal segment of the mid obtuse marginal, starting from its ostium. Following treatment of this lesion, there was an excellent angiographic result and 0 residual stenosis. There was no compromise of the AV groove vessel, which led to a terminal medium sized branch. We then turned our attention to the proximal AV groove stenosis. In a primary stenting maneuver, we deployed a 3.0 x 8 mm drug-eluting stent, post-dilated to 3.25 mm diameter. The catheters and the wires were removed, post-intervention angiograms revealed an excellent angiographic result at both treated sites, 0 residual stenosis and LEI 3 flow through the system. The procedure was well tolerated by the patient and there were no complications. Additional angiograms showed the LAD stent that was deployed at yesterday's procedure remained widely patent with LEI 3 flow. CONCLUSION: 1. Limited angiography shows wide patency of the previously deployed mid LAD stent. 2. Successful second vessel angioplasty and stenting of the proximal circumflex and the mid obtuse marginal branch. Excellent angiographic results following angioplasty and stenting of these segments of the circumflex system. JOB# [id number] FOX/NTS
[2019-03-15] MEDS ORDERED: SODIUM CHLORIDE 0.9% 1000 ML 1,000 ML IV SCH (13:15)
[2019-03-15] MEDS: METOPROLOL TARTRATE 25 MG TAB PO SCH ×2 (14:00→22:21)
--- NOTE | 2019-03-15 14:24 | Progress Note ---
Assessment and Plan Assessment and plan: 49-year-old woman with a history of asthma, chronic back pain comes emergency room complaints of chest pain that started yesterday. Pain is in the epigastric area which she describes as sharp pain, constant, intensity 5/10, radiating to the right arm, cannot identify exacerbating factors. Admits to nausea vomiting no shortness of breath, palpitation. Patient is being admitted for STEMI Cardiac cath documentation as noted Cardiac catheterization was completed via the right radial artery, no complications. We found: 1. Severe mid LAD disease with a greater than 95% calcified stenosis. 2. Severe disease of the mid obtuse marginal branch of the circumflex artery. 3. At least mild left ventricular systolic dysfunction with ejection fraction 40%. Successful ad hoc coronary angioplasty and stenting of the LAD, excellent angiographic result with serial, 3.0-3.5 mm drug-eluting stents. Patient will be recommended for a staged second vessel intervention to the mid obtuse marginal. 03/15/19 Successful second vessel angioplasty and stenting of the proximal AV groove and mid obtuse marginal segments of the circumflex system. Excellent angiographic result, no complications. NSTEMI CAD-Severe Hypotension Obesity Plan Patient is status post staged PCI due to sverity of the disease Continue dual antiplatelet therapy, and statin therapy Antihypertensive management per cardiology metoprolol lisinopril and nitrates w ill be held due to low blood pressure. Extensive counseling on weight loss discussed with the patient verbalized understanding. Anticipate discharge in a.m. Full code status History Interval history: Patient seen and examined, for staged cath today Hospitalist Physical - Physical exam Narrative exam: GEN: Not in acute distress, lying in bed, obese HEENT: Normocephalic, atraumatic, Neck: supple, No JVD Lungs: Clear to auscultation bilaterally, no wheeze, heart;S1 and S2 reg, no murmurs Abd:soft, non tender, non distended, normal bowel sounds Ext: No edema, no clubbing, no cyanosis Neuro: AAO X 3, no focal neurological signs, moves all ext - Constitutional Vitals: Temp Pulse Resp BP Pulse Ox 99.2 F 77 18 85/42 97 03/15/19 02:48 03/15/19 10:00 03/15/19 08:58 03/15/19 02:48 03/15/19 02:48 General appearance: Present: no acute distress LEI score - Lei Score Age > 65: (0) No Aspirin use within the Past 7 Days: (0) No 3 or more CAD Risk Factors: (0) No 2 or more Angina events in past 24 hrs: (0) No Known CAD with more than 50% Stenosis: (0) No Elevated Cardiac Markers: (0) No ST Deviation Greater than 0.5mm: (0) No LEI Score: 0 Results - Labs CBC & Chem 7: 03/15/19 03:40 03/15/19 03:40 Labs: Laboratory Last Values WBC 6.3 K/mm3 (4.5-11.0) 03/15/19 03:40 RBC 3.78 M/mm3 (3.65-5.03) 03/15/19 03:40 Hgb 10.5 gm/dl (10.1-14.3) 03/15/19 03:40 Hct 31.6 % (30.3-42.9) 03/15/19 03:40 MCV 84 fl (79-97) 03/15/19 03:40 MCH 28 pg (28-32) 03/15/19 03:40 MCHC 33 % (30-34) 03/15/19 03:40 RDW 15.0 % (13.2-15.2) 03/15/19 03:40 Plt Count 293 K/mm3 (140-440) 03/15/19 03:40 Lymph % (Auto) 24.8 % (13.4-35.0) 03/15/19 03:40 [place] % (Auto) 11.3 % (0.0-7.3) H 03/15/19 03:40 Eos % (Auto) 3.6 % (0.0-4.3) 03/15/19 03:40 Baso % (Auto) 0.3 % (0.0-1.8) 03/15/19 03:40 Lymph # 1.6 K/mm3 (1.2-5.4) 03/15/19 03:40 [place] # 0.7 K/mm3 (0.0-0.8) 03/15/19 03:40 Eos # 0.2 K/mm3 (0.0-0.4) 03/15/19 03:40 Baso # 0.0 K/mm3 (0.0-0.1) 03/15/19 03:40 Seg Neutrophils % 60.0 % (40.0-70.0) 03/15/19 03:40 Seg Neutrophils # 3.8 K/mm3 (1.8-7.7) 03/15/19 03:40 PT 13.9 Sec. (12.2-14.9) 03/15/19 03:40 INR 1.06 (0.87-1.13) 03/15/19 03:40 APTT 76.2 Sec. (24.2-36.6) H* 03/14/19 05:16 Activated Clotting Time 307 (74-137) H 03/14/19 12:05 Heparin Anti-Xa Level < 0.10 U.I./ml (0.3-0.7) L 03/14/19 15:29 Sodium 136 mmol/L (137-145) L 03/15/19 03:40 Potassium 4.0 mmol/L (3.6-5.0) 03/15/19 03:40 Chloride 100.9 mmol/L (98-107) 03/15/19 03:40 Carbon Dioxide 24 mmol/L (22-30) 03/15/19 03:40 Anion Gap 15 mmol/L 03/15/19 03:40 BUN 9 mg/dL (7-17) 03/15/19 03:40 Creatinine 0.6 mg/dL (0.7-1.2) L 03/15/19 03:40 Estimated GFR > 60 ml/min 03/15/19 03:40 BUN/Creatinine Ratio 15 % 03/15/19 03:40 Glucose 124 mg/dL (65-100) H 03/15/19 03:40 POC Glucose 108 (70-105) H 03/15/19 05:16 Calcium 9.2 mg/dL (8.4-10.2) 03/15/19 03:40 Total Creatine Kinase 145 units/L (30-135) H 03/15/19 03:40 CK-MB (CK-2) 2.4 ng/mL (0.0-4.0) 03/15/19 03:40 CK-MB (CK-2) Rel Index 1.6 (0-4) 03/15/19 03:40 Troponin T 0.597 ng/mL (0.00-0.029) H* D 03/15/19 03:40 Triglycerides 130 mg/dL (2-149) 03/11/19 21:06 Cholesterol 192 mg/dL (50-199) 03/11/19 21:06 LDL Cholesterol Direct 130 mg/dL (50-130) 03/11/19 21:06 HDL Cholesterol 46 mg/dL (40-59) 03/11/19 21:06 Cholesterol/HDL Ratio 4.17 % 03/11/19 21:06 Active Medications - Current Medications Current Medications: Generic Name Dose Route Start Last Admin Trade Name Freq PRN Reason Stop Dose Admin Acetaminophen 650 mg 03/12/19 08:44 03/12/19 17:14 Tylenol PO 650 mg Q6H PRN Administration Headache Aspirin 81 mg 03/12/19 10:00 03/13/19 09:21 Baby Aspirin PO 81 mg QDAY CHIDI Administration Atorvastatin Calcium 40 mg 03/14/19 22:00 03/14/19 21:36 Lipitor PO 40 mg QHS CHIDI Administration Clopidogrel Bisulfate 75 mg 03/15/19 10:00 03/15/19 11:25 Plavix PO 75 mg QDAY CHIDI Administration Heparin Sodium/Sodium Chloride 25,000 unit in 500 mls @ 20 mls/hr 03/14/19 15:00 Heparin/ 0.45% Nacl-25,000 Unit/500 Ml IV [facility] Protocol 1,000 UNITS/HR Sodium Chloride 1,000 mls @ 75 mls/hr 03/15/19 13:15 Nacl 0.9% 1000 Ml IV 03/16/19 01:14 [facility] Isosorbide Mononitrate 30 mg 03/14/19 15:00 03/15/19 11:09 Imdur PO Not Given QDAY [facility] Lisinopril 5 mg 03/14/19 15:00 03/15/19 11:08 Zestril PO Not Given QDAY [facility] Metoprolol Tartrate 25 mg 03/14/19 14:00 03/14/19 21:35 Metoprolol PO 25 mg Q8HR CHIDI Administration Morphine Sulfate 2 mg 03/12/19 05:47 03/14/19 21:36 Morphine IV 2 mg Q4H PRN Administration Pain, Moderate (4-6) Nitroglycerin 0.4 mg 03/12/19 08:43 Nitrostat SL .Q5MIN PRN Chest Pain
[2019-03-15] MEDS: MORPHINE 2 MG/1 ML INJ IV PRN (15:13)
[2019-03-16] MEDS: MORPHINE 2 MG/1 ML INJ IV PRN ×2 (01:55→08:31)
[2019-03-16] MEDS: METOPROLOL TARTRATE 25 MG TAB PO SCH ×2 (05:24→07:40)
[2019-03-16] MEDS: ALBUTEROL 2.5 MG/3 ML NEBU IH PRN ×2 (07:52→13:03)
--- NOTE | 2019-03-16 07:57 | XRay Report ---
CHEST 1 VIEW INDICATION: post pci. COMPARISON: One day prior. FINDINGS: Support devices: None. Heart: Stable. Lungs/Pleura: No acute pulmonary or pleural findings. IMPRESSION: 1. No significant change. Signer Name: Sukhjinder Strong MD Signed: 03/16/2019 7:52 AM Workstation Name: [id number]
[2019-03-16 08:47] LABS: Basophils # (Auto) 0.1 K/mm3 (0.0-0.1); Basophils % (Auto) 0.9 % (0.0-1.8); Eosinophils # (Auto) 0.3 K/mm3 (0.0-0.4); Eosinophils % (Auto) 5.6 % (0.0-4.3); Hematocrit 32.5 % (30.3-42.9); Hemoglobin 10.8 gm/dl (10.1-14.3); Lymphocytes # (Auto) 1.8 K/mm3 (1.2-5.4); Lymphocytes % (Auto) 31.3 % (13.4-35.0); Mean Corpuscular HGB Conc 33 % (30-34); Mean Corpuscular Volume 86 fl (79-97); Monocytes # (Auto) 0.7 K/mm3 (0.0-0.8); Monocytes % (Auto) 12.2 % (0.0-7.3); Platelet Count 300 K/mm3 (140-440); Red Cell Distribution Width 14.6 % (13.2-15.2)
--- NOTE | 2019-03-16 09:00 | Progress Note ---
Assessment and Plan - Patient Problems (1) Non-STEMI (non-ST elevated myocardial infarction) Current Visit: Yes Status: Acute Plan to address problem: NSTEMI Cardiac catheterization findings: 1. Severe mid LAD disease with a greater than 95% calcified stenosis. 2. Severe disease of the mid obtuse marginal branch of the circumflex artery. 3. At least mild left ventricular systolic dysfunction with ejection fraction 40%. Successful ad hoc coronary angioplasty and stenting of the LAD, excellent angiographic result with serial, 3.0-3.5 mm drug-eluting stents. Successful second vessel angioplasty and stenting of the proximal AV groove and mid obtuse marginal segments of the circumflex system. E Normal LVEF 60-65% by echocardiogram. Continue medical therapy for coronary artery disease including nitrates, beta blockers, statin therapy and DAPT with plavix and aspirin. Stable cardiac cedillo for discharge home today. Patient advised to follow up with [facility]. Mar 23 at 240 pm. Subjective Date of service: 03/16/19 Interval history: Patient is resting in bed comfortably. Objective Vital Signs Temp Pulse Pulse Resp Resp BP Pulse Ox 03/16/19 07:52 69 18 03/16/19 07:46 98 03/16/19 05:24 71 92/56 03/16/19 04:00 98.4 F 71 18 92/56 100 03/15/19 23:10 98.8 F 82 18 100/47 100 03/15/19 22:23 18 109/61 03/15/19 22:21 79 109/61 03/15/19 22:00 18 100 03/15/19 20:06 80 03/15/19 19:17 99.0 F 81 18 99/48 100 03/15/19 16:06 98.6 F 83 18 106/57 99 03/15/19 15:43 20 03/15/19 15:13 20 03/15/19 15:00 98.6 F 80 20 110/74 99 03/15/19 14:30 82 20 108/68 99 03/15/19 14:00 98.2 F 80 20 104/64 99 03/15/19 13:45 98.4 F 78 18 106/60 99 03/15/19 13:30 98.2 F 84 20 110/62 99 03/15/19 10:55 96 03/15/19 10:00 77 - Physical Examination General: No Apparent Distress HEENT: Positive: PERRL Neck: Positive: neck supple Cardiac: Positive: Reg Rate and Rhythm Lungs: Positive: Decreased Breath Sounds Neuro: Positive: Grossly Intact Abdomen: Positive: Unremarkable, Soft - Labs and Meds CBC 03/16/19 Range/Units 06:48 WBC 5.7 (4.5-11.0) K/mm3 RBC 3.80 (3.65-5.03) M/mm3 Hgb 10.8 (10.1-14.3) gm/dl Hct 32.5 (30.3-42.9) % Plt Count 300 (140-440) K/mm3 Lymph # 1.8 (1.2-5.4) K/mm3 Rogers # 0.7 (0.0-0.8) K/mm3 Eos # 0.3 (0.0-0.4) K/mm3 Baso # 0.1 (0.0-0.1) K/mm3
[2019-03-16] MEDS: CLOPIDOGREL 75 MG TAB PO SCH (10:15)
[2019-03-16] MEDS: ASPIRIN 81 MG TAB CHEW PO SCH (10:15)
[2019-03-16] MEDS: LISINOPRIL 5 MG TAB PO SCH (10:16)
[2019-03-16 11:32] LABS: Creatine Kinase MB 2.6 ng/mL (0.0-4.0)
[2019-03-16 11:33] LABS: BUN/Creatinine Ratio 12; Blood Urea Nitrogen 7 mg/dL (7-17); Calcium 9.3 mg/dL (8.4-10.2)
[2019-03-16 11:34] LABS: Hemolysis Index 12
--- NOTE | 2019-03-16 12:47 | Discharge Summary ---
Providers - Providers Date of Admission: 03/12/19 05:02 Attending physician: DORIS DIAZ MD 03/12/19 01:12 Consult to Physician [CONS] Urgent Comment: Consulting Provider: GAIL MERCADO Physician Instructions: Reason For Exam: non-STEMI 03/14/19 Consult to Cardiac Rehabilitation [CONS] Routine Reason For Exam: post pci 03/15/19 Consult to Cardiac Rehabilitation [CONS] Routine Reason For Exam: post pci Primary care physician: ENVIRONMENTAL TECHNICIAN Hospitalization Reason for admission: Chest Condition: Stable Hospital course: 49-year-old woman with a history of asthma, chronic back pain comes emergency room complaints of chest pain that started yesterday. Pain is in the epigastric area which she describes as sharp pain, constant, intensity 5/10, radiating to the right arm, cannot identify exacerbating factors. Admits to nausea vomiting no shortness of breath, palpitation. Patient is being admitted for STEMI Cardiac cath documentation as noted Cardiac catheterization was completed via the right radial artery, no complications. We found: 1. Severe mid LAD disease with a greater than 95% calcified stenosis. 2. Severe disease of the mid obtuse marginal branch of the circumflex artery. 3. At least mild left ventricular systolic dysfunction with ejection fraction 40%. Successful ad hoc coronary angioplasty and stenting of the LAD, excellent angiographic result with serial, 3.0-3.5 mm drug-eluting stents. Patient will be recommended for a staged second vessel intervention to the mid obtuse marginal. 03/15/19 Successful second vessel angioplasty and stenting of the proximal AV groove and mid obtuse marginal segments of the circumflex system. Excellent angiographic result, no complications. Blood pressure medications were adjusted and patient stable for discharge will be discharged on metoprolol and lisinopril, nitrates held and will be reevalu ated in the office. NSTEMI Status post PCI CAD-Severe Hypotension Obesity Disposition: [id number]-06 HOME [facility]ER [facility] Time spent for discharge: 35 MINS Core Measure Documentation - Palliative Care Palliative Care/ Comfort Measures: Not Applicable - Core Measures Any of the following diagnoses?: acute AR - Acute AR Discharge Requirements Aspirin at discharge: Yes MICHAEL/ARB for LVSD if EF <40%: Yes Beta melva at discharge: Yes Statin for LDL = or >100 mg/dl on DC: Yes Exam - Physical Exam Narrative exam: GEN: Not in acute distress, lying in bed, obese HEENT: Normocephalic, atraumatic, Neck: supple, No JVD Lungs: Clear to auscultation bilaterally, no wheeze, heart;S1 and S2 reg, no murmurs Abd:soft, non tender, non distended, normal bowel sounds Ext: No edema, no clubbing, no cyanosis Neuro: AAO X 3, no focal neurological signs, moves all ext - Constitutional Vitals: Temp Pulse Resp BP Pulse Ox 98.4 F 83 18 92/56 98 03/16/19 04:00 03/16/19 10:00 03/16/19 07:52 03/16/19 05:24 03/16/19 07:46 Plan Activity: advance as tolerated, fall precautions Diet: low fat Special Instructions: record daily weights, record daily BP diary, smoking cessation Follow up with: PRIMARY CARE, [Primary Care Provider] - 3-5 Days RAJESH BUCK MD [Staff Physician] - 7 Days Forms: [facility] PCI D/C Instructions, Discharge Signature Page Prescriptions: AtorvaSTATin [Lipitor] 40 mg PO QHS #30 tablet Aspirin [Aspirin BABY CHEW TAB] 81 mg PO QDAY #30 tab.chew Metoprolol [Lopressor TAB] 25 mg PO BID #60 tablet Nitroglycerin [Nitrostat] 0.4 mg SL .Q5MIN PRN #14 tablet PRN Reason: Chest Pain Clopidogrel [Plavix] 75 mg PO QDAY #30 tablet lisinopriL [Zestril TAB] 5 mg PO QDAY #30 tablet
[2019-03-16 14:23] VITALS: BP 106/57
== END 2019-03-16 15:21 | disposition home health service (06) | DRG 247 ==
LOC: ED 19:30 → 4A 03-12 05:02
PROVIDERS: ADMIT Internal Medicine; ATTEND Internal Medicine
PROC: 027034Z Dilation of Coronary Artery, One Artery with Drug-eluting Intraluminal Device, Percutaneous Approach (ICD-10-PCS; 2019-03-14)
PROC: B2111ZZ Fluoroscopy of Multiple Coronary Arteries using Low Osmolar Contrast (ICD-10-PCS; 2019-03-14)
PROC: 4A023N7 Measurement of Cardiac Sampling and Pressure, Left Heart, Percutaneous Approach (ICD-10-PCS; 2019-03-14)
PROC: B2151ZZ Fluoroscopy of Left Heart using Low Osmolar Contrast (ICD-10-PCS; 2019-03-14)
PROC: 027035Z Dilation of Coronary Artery, One Artery with Two Drug-eluting Intraluminal Devices, Percutaneous Approach (ICD-10-PCS; principal; 2019-03-15)
PROC: B2111ZZ Fluoroscopy of Multiple Coronary Arteries using Low Osmolar Contrast (ICD-10-PCS; 2019-03-15)
DX: I21.4 Non-ST elevation (NSTEMI) myocardial infarction (principal); I10 Essential (primary) hypertension; G89.29 Other chronic pain; M54.9 Dorsalgia, unspecified; J45.909 Unspecified asthma, uncomplicated; I95.9 Hypotension, unspecified; E66.9 Obesity, unspecified; Z88.1 Allergy status to other antibiotic agents; Z88.6 Allergy status to analgesic agent; Z83.3 Family history of diabetes mellitus; Z82.49 Family history of ischemic heart disease and other diseases of the circulatory system; Z87.891 Personal history of nicotine dependence; Z98.51 Tubal ligation status; Z79.899 Other long term (current) drug therapy; Z68.36 Body mass index [BMI] 36.0-36.9, adult; I25.10 Atherosclerotic heart disease of native coronary artery without angina pectoris; Z71.3 Dietary counseling and surveillance
CPT/HCPCS: 36415; 71045; 71275; 80048; 80061; 82550; 82553; 82962; 84484; 85014; 85018; 85025; 85027; 85049; 85347; 85520; 85610; 85730; 87040; 92928; 93005; 93010; 93306; 93458; 94640; 94760; 96374; 96375; G0378; A9270-GY; C1725; C1769; C1874; C1887; C1894; C9600; J1170; J1644; J2250; J2270; J2405; J3010; J7030; J7040; Q9967

== ENCOUNTER 2020-05-23 20:37 | Emergency (ER) | payer MEDICAID ==
[2020-05-23 21:23] VITALS: BP 137/77
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
[2020-05-24 00:29] LABS: Bilirubin,Urine NEG (Negative); Blood,Urine NEG (Negative); Color,Urine Yellow (Yellow); Mucus,Urine 1+ /HPF; Protein,Urine <15 mg/dL mg/dL (Negative); Urobilinogen,Urine < 2.0 mg/dL (<2.0)
[2020-05-24 00:31] LABS: Basophils % (Auto) 0.2 % (0.0-1.8); Eosinophils # (Auto) 0.4 K/mm3 (0.0-0.4); Eosinophils % (Auto) 4.2 % (0.0-4.3); Hematocrit 36.8 % (30.3-42.9); Hemoglobin 12.1 gm/dl (10.1-14.3); Lymphocytes # (Auto) 2.6 K/mm3 (1.2-5.4); Lymphocytes % (Auto) 30.1 % (13.4-35.0); Mean Corpuscular HGB Conc 33 % (30-34); Mean Corpuscular Volume 85 fl (79-97); Monocytes # (Auto) 0.6 K/mm3 (0.0-0.8); Monocytes % (Auto) 7.4 % (0.0-7.3); Platelet Count 268 K/mm3 (140-440); Red Blood Count 4.33 M/mm3 (3.65-5.03); Red Cell Distribution Width 15.5 % (13.2-15.2)
[2020-05-24 00:49] LABS: Alanine Aminotransferase 12 units/L (7-56); Albumin 4.4 g/dL (3.9-5); BUN/Creatinine Ratio 11; Blood Urea Nitrogen 9 mg/dL (7-17); Calcium 8.9 mg/dL (8.4-10.2); Hemolysis Index 1
--- NOTE | 2020-05-24 00:49 | Cat Scan Report ---
CT abdomen pelvis wo con INDICATION: Pt complaining of "Generalized" abd pain, pain mostly RIGHT flank. TECHNIQUE: All CT scans at this location are performed using CT dose reduction for ALARA by means of automated e xposure control. COMPARISON: 12/19/2018 FINDINGS: Lung bases are clear of acute disease. Gallbladder is mostly collapsed, with no obvious stones. Liver , spleen, pancreas, kidneys and adrenals are negative on this noncontrast study. No urinary tract ernst culi. Pelvis Normal appendix. Uterus is lobular and slightly enlarged, suggesting fibroids. Urinary bladder is mos tly collapsed but unremarkable. 4 cm cystic lesion in the right adnexa is unchanged. No significant b owel abnormalities. No acute skeletal lesions. IMPRESSION: 1. 4 cm right ovarian cyst, unchanged since November 2018. 2. No acute abnormalities. Signer Name: Albert Brown MD Signed: 05/24/2020 12:44 AM Workstation Name: [id number]
[2020-05-24 00:54] LABS: Bilirubin,Direct < 0.2 mg/dL (0-0.2)
== END 2020-05-24 03:55 | disposition home or self-care (01) ==
LOC: ED 20:37
DX: N83.209 Unspecified ovarian cyst, unspecified side (principal); M25.551 Pain in right hip; G89.29 Other chronic pain; R10.13 Epigastric pain; R10.2 Pelvic and perineal pain; I10 Essential (primary) hypertension; I25.2 Old myocardial infarction; J45.909 Unspecified asthma, uncomplicated; F17.200 Nicotine dependence, unspecified, uncomplicated; Z98.890 Other specified postprocedural states; Z79.899 Other long term (current) drug therapy; Z88.8 Allergy status to other drugs, medicaments and biological substances
CPT/HCPCS: 36415; 74176; 80048; 80076; 81001; 83690; 84703; 85025